=== PATIENT | female | born 1990 | race Caucasian/White ===

== ENCOUNTER 2017-01-01 19:52 | Emergency (ER) | payer OTHER ==
[2017-01-01 20:02] VITALS: RESP 16
[2017-01-01] MEDS ORDERED: NS 1,000 ML IV ONE (21:19)
--- NOTE | 2017-01-01 21:25 | EDPHY ---
General Narrative: CHIEF COMPLAINT: Left flank pain, blood in urine HISTORY OF PRESENT ILLNESS: Patient complains of left-sided flank pain for 3 days. Gradual onset. Constant duration. [id number] 1st now moderate to severe. Worse with palpation and movement. Notice some blood in her urine at times. No fever or chills. No trauma or injury. No headache. No other associated complaints or modifying factors. Went to urgent care and they sent her to our facility due to blood in the urine. REVIEW OF SYSTEMS: Ten systems reviewed and are negative unless otherwise noted in the HPI PAST MEDICAL HISTORY: Denies any medical history PAST SURGICAL HISTORY: Orthopedic surgeries SOCIAL HISTORY: Nonsmoker. Lives here in [place]. Works as a clinical executive secretary social welfare FAMILY HISTORY: Noncontributory EXAMINATION General Appearance: Alert, no distress Head: normocephalic, atraumatic Eyes: Pupils equal and round, no conjunctival pallor or injection ENT, Mouth: Mucous membranes moist Neck: Normal inspection, supple, non-tender Respiratory: Lungs are clear to auscultation Cardiovascular: Regular rate and rhythm Gastrointestinal: Abdomen is soft and nondistended. There is moderate left- sided CVA tenderness. No guarding. No distention. No rigidity. Back: non-tender, no bony abnormalities Neurological: A&O, nonfocal, normal gait Skin: Warm and dry, no rash Extremities: Nontender, no pedal edema Psychiatric: Mood and affect normal DIFFERENTIAL DIAGNOSES: Including but not limited to pyelonephritis, nephrolithiasis, renal colic, ureterolithiasis, cystitis, UTI MDM: 9:25 p.m. Left flank pain with reported gross hematuria. Benign abdominal examination. Vital signs stable. Laboratory studies and urine are pending. No acute distress. 10:05 p.m. I have re-evaluated the patient pain is starting to improve. She has no leukocytosis. No fever. No nausea or vomiting. Urinalysis shows blood and bacteria but no other abnormalities. I have ordered a renal ultrasound. I do not feel she warrants an emergent CT scan at this time. 10:45 p.m. Notified by radiologist Dr. Aly Workman. Renal ultrasound is unremarkable for any acute findings. 10:55 p.m. Left-sided flank pain with mild microscopic hematuria. No brittny hematuria. No leukocytosis. No evidence of pyelonephritis or significant renal stone. Question the possibility of small, nonobstructive stone. Question possibility of early UTI versus pyelonephritis. I have elected to discharge patient home with pain medication p.r.n. short course. I will treat her with Keflex pending the outcome of the urine culture. Referred to Urology for definitive care. ED precautions discussed. She is comfortable this plan. - Diagnostics Imaging Results: Imaging Impressions Abdomen/Pelvis Ultrasound 01/01/17 22:03 Impression: Normal bilateral renal sonography. I telephoned results to Zuhair Oneill at 2245 hours. - History Smoking Status: Never smoked - Objective Vital Signs: Initial Vital Signs Temperature (C) 98.8 F 01/01/17 19:59 Heart Rate 84 01/01/17 19:59 Respiratory Rate 16 01/01/17 19:59 Blood Pressure 101/61 01/01/17 19:59 O2 Sat (%) 96 01/01/17 19:59 O2 Delivery Mode Room Air Allergies/Adverse Reactions: No Known Allergies Allergy (Unverified 12/03/14 18:14) Home Medications: Medication Instructions Recorded Tablet 12/03/14 Cephalexin [Keflex (*)] 500 mg PO TID #18 cap 01/01/17 Laboratory Results: Laboratory Results 01/01/17 21:45 01/01/17 21:45 01/01/17 01/01/17 01/01/17 21:45 21:45 21:45 WBC 5.77 10^3/uL 10^3/uL (3.80-9.50) RBC 4.14 10^6/uL L 10^6/uL (4.18-5.33) Hgb 13.2 g/dL g/dL (12.6-16.3) Hct 38.1 % % (38.0-47.0) MCV 92.0 fL fL (81.5-99.8) MCH 31.9 pg pg (27.9-34.1) MCHC 34.6 g/dL g/dL (32.4-36.7) RDW 13.0 % % (11.5-15.2) Plt Count 231 10^3/uL 10^3/uL (150-400) MPV 10.6 fL fL (8.7-11.7) Neut % (Auto) 46.8 % % (39.3-74.2) Lymph % (Auto) 43.7 % % (15.0-45.0) Fisher % (Auto) 7.6 % % (4.5-13.0) Eos % (Auto) 1.0 % % (0.6-7.6) Baso % (Auto) 0.7 % % (0.3-1.7) Nucleat RBC Rel Count 0.0 % % (0.0-0.2) Absolute Neuts (auto) 2.70 10^3/uL 10^3/uL (1.70-6.50) Absolute Lymphs (auto) 2.52 10^3/uL 10^3/uL (1.00-3.00) Absolute Monos (auto) 0.44 10^3/uL 10^3/uL (0.30-0.80) Absolute Eos (auto) 0.06 10^3/uL 10^3/uL (0.03-0.40) Absolute Basos (auto) 0.04 10^3/uL 10^3/uL (0.02-0.10) Absolute Nucleated RBC 0.00 10^3/uL 10^3/uL (0-0.01) Immature Gran % 0.2 % % (0.0-1.1) Immature Gran # 0.01 10^3/uL 10^3/uL (0.00-0.10) Sodium 136 mEq/L mEq/L (134-144) Potassium 3.9 mEq/L mEq/L (3.5-5.2) Chloride 104 mEq/L mEq/L (97-110) Carbon Dioxide 23 mEq/l mEq/l (22-31) Anion Gap 9 mEq/L mEq/L (8-16) BUN 10 mg/dL mg/dL (7-23) Creatinine 0.9 mg/dL mg/dL (0.6-1.0) Estimated GFR > 60 Glucose 97 mg/dL mg/dL (70-100) Calcium 9.1 mg/dL mg/dL (8.5-10.4) Lipase 102 IU/L IU/L (23-300) Beta HCG, Qual NEGATIVE Urine Color Urine Appearance Urine pH Ur Specific [place] Urine Protein Urine Ketones Urine Blood Urine Nitrate Urine Bilirubin Urine Urobilinogen Ur Leukocyte Esterase Urine RBC Urine WBC Ur Epithelial Cells Urine Bacteria Urine Glucose 01/01/17 21:15 WBC RBC Hgb Hct MCV MCH MCHC RDW Plt Count MPV Neut % (Auto) Lymph % (Auto) Fisher % (Auto) Eos % (Auto) Baso % (Auto) Nucleat RBC Rel Count Absolute Neuts (auto) Absolute Lymphs (auto) Absolute Monos (auto) Absolute Eos (auto) Absolute Basos (auto) Absolute Nucleated RBC Immature Gran % Immature Gran # Sodium Potassium Chloride Carbon Dioxide Anion Gap BUN Creatinine Estimated GFR Glucose Calcium Lipase Beta HCG, Qual Urine Color PALE YELLOW Urine Appearance CLEAR Urine pH 7.0 (5.0-7.5) Ur Specific [place] 1.004 (1.002-1.030) Urine Protein NEGATIVE (NEGATIVE) Urine Ketones NEGATIVE (NEGATIVE) Urine Blood 1+ H (NEGATIVE) Urine Nitrate NEGATIVE (NEGATIVE) Urine Bilirubin NEGATIVE (NEGATIVE) Urine Urobilinogen NEGATIVE EU EU (0.2-1.0) Ur Leukocyte Esterase NEGATIVE (NEGATIVE) Urine RBC 1-3 /hpf /hpf (0-3) Urine WBC 1-3 /hpf /hpf (0-3) Ur Epithelial Cells TRACE /lpf /lpf (NONE-1+) Urine Bacteria 4+ /hpf H /hpf (NONE SEEN) Urine Glucose NEGATIVE (NEGATIVE) Medications Given: Discontinued Medications Cephalexin (Keflex 500 Mg Prepack#4) 1 btl TAKEHOME EDNOW ONE PRN Reason: Protocol Stop: 01/01/17 23:13 Last Admin: 01/01/17 23:37 Dose: 1 btl Sodium Chloride (Ns) 1,000 mls @ 0 mls/hr IV EDNOW ONE; Wide Open PRN Reason: Protocol Stop: 01/01/17 21:20 Last Admin: 01/01/17 22:11 Dose: 1,000 mls Oxycodone/Acetaminophen (Percocet 5/325mg Prepack#4) 1 btl TAKEHOME EDNOW ONE Stop: 01/01/17 23:13 Last Admin: 01/01/17 23:39 Dose: 1 btl Departure - Departure Disposition: Home, Routine, Self-Care Clinical Impression: Flank pain, Microscopic hematuria Condition: Good Instructions: Hematuria (ED), How to Strain Your Urine (ED), Flank Pain (ED) Additional Instructions: 1. Keflex as prescribed to completion 2. Increase fluid intake 3. Percocet prescribed as needed Referrals: Joceline Lane MD [Primary Care Provider] - As per Instructions Kirstin Neely MD [Medical Doctor] - As per Instructions Prescriptions: Cephalexin [Keflex (*)] 500 mg PO TID #18 cap
[2017-01-01 21:43] LABS: COLOR PALE YELLOW; LEUKOCYTE ESTERASE,URINE NEGATIVE (NEGATIVE); NITRITE,URINE NEGATIVE (NEGATIVE)
[2017-01-01 21:45] LABS: BACTERIA 4+ /hpf (NONE SEEN)
[2017-01-01 22:00] LABS: % IMMATURE GRANULYOCYTES 0.2 % (0.0-1.1); ABSOLUTE IMMATURE GRANULOCYTES 0.01 10^3/uL (0.00-0.10); ADD DIFF? NO; ADD MORPH? NO; ADD SCAN? NO; ATYPICAL LYMPHOCYTE FLAG 10 (0-99); FRAGMENT RBC FLAG 0 (0-99); HEMATOCRIT 38.1 % (38.0-47.0); HEMOGLOBIN 13.2 g/dL (12.6-16.3); LEFT SHIFT FLG 0 (0-99); LIPEMIA HEMOLYSIS FLAG 90 (0-99); MEAN CELL HEMOGLOBIN 31.9 pg (27.9-34.1); MEAN CELL HEMOGLOBIN CONCENTR. 34.6 g/dL (32.4-36.7); MEAN PLATELET VOLUME 10.6 fL (8.7-11.7); PLATELET CLUMPS FLAG 0 (0-99); PLATELET COUNT 231 10^3/uL (150-400); RED BLOOD CELL COUNT 4.14 10^6/uL (4.18-5.33)
[2017-01-01 22:28] LABS: ANION GAP 9 mEq/L (8-16); CALCIUM 9.1 mg/dL (8.5-10.4); CARBON DIOXIDE 23 mEq/l (22-31); CHLORIDE 104 mEq/L (97-110); CREATININE 0.9 mg/dL (0.6-1.0); GLOMERULAR FILTRATION RATE > 60; GLUCOSE 97 mg/dL (70-100); POTASSIUM 3.9 mEq/L (3.5-5.2); SODIUM 136 mEq/L (134-144)
[2017-01-01] MEDS ORDERED: OXYCODONE/APAP 5/325MG PREPACK#4 BTL TAKEHOME ONE (23:12)
[2017-01-01] MEDS ORDERED: CEPHALEXIN 500MG PREPACK#4 BTL TAKEHOME ONE (23:12)
[2017-01-01 23:54] VITALS: BP 109/65; PULSE 80; TEMP 98.6; O2SAT 97
== END 2017-01-01 23:51 | disposition home or self-care (01) ==
DX: R31.29 Other microscopic hematuria (principal); E86.9 Volume depletion, unspecified

== ENCOUNTER → 2017-01-03 | Outpatient (CLI) | payer OTHER | LOC: FIMAGING 11:18 | PROVIDERS: ATTEND Specialist | DX: N20.0 Calculus of kidney (principal) ==